=== PATIENT | male | born 1970 | race Two or more races ===

== ENCOUNTER 2018-02-11 08:57 | Emergency (ER) | payer MEDICAID ==
[~2018-02-11] VITALS: Ht 170.2 cm; Wt 106.6 kg
[2018-02-11 09:05] VITALS: BP 152/87
[2018-02-11] MEDS ORDERED: LET TOPICAL SOLN 5 ML TOP ONE (09:30)
[2018-02-11] MEDS ORDERED: BACITRACIN TOP OINT 1 UD PKG TOP ONE (09:30)
[2018-02-11] MEDS ORDERED: LIDOCAINE 1% (LOCAL ANESTH.) PF 5ml SDV ID ONE (09:30)
[2018-02-11] MEDS ORDERED: TETANUS-DIPTH-ACEL PERTUSSIS 0.5ML SYRG IM ONE (09:30)
[2018-02-11] MEDS ORDERED: LIDOCAINE W/ EPINEPHRINE 1 % INJ 30ML ONE (09:51)
== END 2018-02-11 11:10 | disposition home or self-care (01) ==
LOC: ER 08:57
DX: S61.511A Laceration without foreign body of right wrist, initial encounter (principal); S61.212A Laceration without foreign body of right middle finger without damage to nail, initial encounter; W25.XXXA Contact with sharp glass, initial encounter; Y93.89 Activity, other specified; Y99.8 Other external cause status; Y92.89 Other specified places as the place of occurrence of the external cause
CPT/HCPCS: 12002; 90471; 90715; 99284; J2001; J3490